=== PATIENT | female | born 1970 | race American Indian/Alaskan Native ===

== ENCOUNTER 2018-03-15 15:01 | Emergency (ER) | payer MEDICAID ==
[~2018-03-15] VITALS: Ht 162.6 cm; Wt 64.0 kg
[2018-03-15 15:57] LABS: BASOPHILS % 1.2 % (0.0-2.0); HEMATOCRIT. 32.4 % (36.0-48.0); HEMOGLOBIN. 10.4 g/dL (12.0-16.0); LYMPHOCYTES % 31.4 % (20.0-50.0); MEAN CORPUSCULAR HEMOGLOBIN 21.5 pg (28.0-32.0); MEAN CORPUSCULAR VOLUME 67.3 fL (81.0-99.0); MEAN PLATELET VOLUME 7.6 fl (7.4-10.4); MONOCYTES % 7.4 % (2.0-8.0); PLATELET 376 x1000/uL (130-400); RED BLOOD CELL COUNT 4.81 mill/uL (4.2-5.4); RED CELL DISTRIBUTION WIDTH 17.9 % (11.6-14.6)
[2018-03-15 16:01] LABS: CHLORIDE 105 mEq/L (98-107)
[2018-03-15 16:04] LABS: ETHANOL BLOOD < 10 mg/dL
[2018-03-15 16:21] LABS: PLATELET ESTIMATE NORMAL
[2018-03-15 18:56] LABS: *AMPHETAMINES SCREEN URINE NEGATIVE (NEGATIVE); *BARBITURATES SCREEN URINE NEGATIVE (NEGATIVE); *BENZODIAZEPINES SCREEN URINE NEGATIVE (NEGATIVE); *COCAINE SCREEN URINE NEGATIVE (NEGATIVE); METHADONE URINE SCREEN NEGATIVE (NEGATIVE)
[2018-03-15 18:57] LABS: CANNABINOID URINE SCREEN NEGATIVE (NEGATIVE); OPIATES URINE SCREEN NEGATIVE (NEGATIVE); PHENCYCLIDINE URINE SCREEN NEGATIVE (NEGATIVE)
[2018-03-15 19:52] LABS: CLARITY URINE CLEAR (CLEAR); COLOR URINE YELLOW (YELLOW); KETONES URINE NEGATIVE (NEGATIVE); LEUKOCYTE ESTERASE URINE NEGATIVE (NEGATIVE); NITRITE URINE NEGATIVE (NEGATIVE); OCCULT BLOOD URINE NEGATIVE (NEGATIVE); PROTEIN URINE NEGATIVE (NEGATIVE); SPECIFIC GRAVITY URINE 1.015 (1.005-1.030); UROBILINOGEN URINE 0.2 E.U./dL (0.2-1.0)
[2018-03-15] MEDS ORDERED: POTASSIUM CHLORIDE 20MEQ TABLET SR PO ONE (20:00)
[2018-03-16 08:30] VITALS: BP 137/68
== END 2018-03-16 08:42 | disposition home or self-care (01) ==
LOC: ER 16:36
DX: R44.0 Auditory hallucinations (principal); R45.851 Suicidal ideations; F32.9 Major depressive disorder, single episode, unspecified; G47.00 Insomnia, unspecified; E11.9 Type 2 diabetes mellitus without complications; F43.10 Post-traumatic stress disorder, unspecified; F17.200 Nicotine dependence, unspecified, uncomplicated; F12.10 Cannabis abuse, uncomplicated; Z88.8 Allergy status to other drugs, medicaments and biological substances
CPT/HCPCS: 36415; 80048; 80305; 80307; 80329; 81003; 81025; 85025; 99284; G0482

== ENCOUNTER 2019-03-07 02:27 | Emergency (ER) | payer MEDICAID ==
[~2019-03-07] VITALS: Ht 157.5 cm; Wt 64.0 kg
[2019-03-07] MEDS ORDERED: ONDANSETRON HCL 4MG/2ML INJ IV STA (03:11)
[2019-03-07] MEDS ORDERED: SODIUM CHLORIDE 0.9% 1,000 ML IV ONE (03:11)
[2019-03-07 03:30] LABS: BASOPHILS % 0.8 % (0.0-2.0); EOSINOPHILS % 0.6 % (0.0-5.0); HEMATOCRIT. 28.9 % (36.0-48.0); HEMOGLOBIN. 8.9 g/dL (12.0-16.0); LYMPHOCYTES % 10.5 % (20.0-50.0); MEAN CORPUSCULAR HEMOGLOBIN 18.9 pg (28.0-32.0); MEAN CORPUSCULAR VOLUME 61.7 fL (81.0-99.0); MEAN PLATELET VOLUME 7.1 fl (7.4-10.4); MONOCYTES % 6.4 % (2.0-8.0); NEUTROPHILS % 81.7 % (40.0-76.0); PLATELET 358 x1000/uL (130-400); RED BLOOD CELL COUNT 4.68 mill/uL (4.2-5.4); RED CELL DISTRIBUTION WIDTH 19.5 % (11.6-14.6)
[2019-03-07 03:36] LABS: CHLORIDE 106 mEq/L (98-107)
[2019-03-07 03:38] LABS: PROTHROMBIN TIME 10.1 sec (9.6-11.0)
[2019-03-07 03:55] LABS: PLATELET ESTIMATE NORMAL
[2019-03-07 05:08] LABS: CLARITY URINE CLEAR (CLEAR); COLOR URINE YELLOW (YELLOW); KETONES URINE NEGATIVE (NEGATIVE); LEUKOCYTE ESTERASE URINE NEGATIVE (NEGATIVE); NITRITE URINE NEGATIVE (NEGATIVE); OCCULT BLOOD URINE NEGATIVE (NEGATIVE); PH URINE 6.5 (4.5-8.0); PROTEIN URINE NEGATIVE (NEGATIVE); UROBILINOGEN URINE 0.2 E.U./dL (0.2-1.0)
[2019-03-07 05:52] VITALS: BP 110/58
== END 2019-03-07 05:53 | disposition home or self-care (01) ==
LOC: ER 02:27
DX: R11.2 Nausea with vomiting, unspecified (principal); R19.7 Diarrhea, unspecified; D64.9 Anemia, unspecified; R42 Dizziness and giddiness; R53.1 Weakness; E11.9 Type 2 diabetes mellitus without complications; F32.9 Major depressive disorder, single episode, unspecified; F17.200 Nicotine dependence, unspecified, uncomplicated; Z88.2 Allergy status to sulfonamides
CPT/HCPCS: 36415; 80053; 81003; 83690; 85025; 85610; 93005; 96361; 96374; 99284; J2405; J7030

== ENCOUNTER 2020-04-25 15:59 | Emergency (ER) | payer MEDICAID ==
[~2020-04-25] VITALS: Ht 157.5 cm; Wt 59.0 kg
[2020-04-25 16:12] VITALS: BP 131/78
[2020-04-25] MEDS ORDERED: KETOROLAC 30MG/ML VIAL IV ONE (17:00)
[2020-04-25] MEDS ORDERED: SODIUM CHLORIDE 0.9% 1,000 ML IV ONE (17:00)
[2020-04-25] MEDS ORDERED: LOPERAMIDE 1 MG/7.5 ML UDC PO ONE (17:00)
[2020-04-25] MEDS ORDERED: ONDANSETRON HCL 4MG/2ML INJ IV ONE (17:00)
== END 2020-04-25 17:45 | disposition left against medical advice (07) ==
LOC: ER 15:59
DX: R19.7 Diarrhea, unspecified (principal); Z53.21 Procedure and treatment not carried out due to patient leaving prior to being seen by health care provider
CPT/HCPCS: J7030